=== PATIENT | male | born 1985 | race Caucasian/White ===

== ENCOUNTER 2017-04-04 11:58 | Emergency (ER) | payer OTHER ==
[2017-04-04] MEDS ORDERED: ASPIRIN 81 MG TABLET, CHEWABLE PO ONE (12:30)
--- NOTE | 2017-04-04 12:31 | ER Document Report ---
ED Medical Screen (RME) - General Chief Complaint: Chest Pain > 30 Stated Complaint: CHEST PAIN Time Seen by Provider: 04/04/17 12:25 Notes: 32-year-old male here with complaints of left-sided chest pain radiating up to the shoulder and arm with left arm numbness that started approximately 1.5 hours ago while he was sitting down watching TV. He does not know of anything that made the pain better or worse. He still has some pain at this time but it is better than it was initially. No diaphoresis or shortness of breath. He does not have any diagnosed hypertension diabetes hyperlipidemia. No prior history of similar. EXAM Left upper extremity strength 5/5 with intact sensation TRAVEL OUTSIDE OF THE [place] IN LAST 30 DAYS: No - Related Data Allergies/Adverse Reactions: No Known Allergies Allergy (Verified 04/04/17 12:03) Physical Exam - Vital signs Vitals: Temp Pulse Resp BP Pulse Ox 98.5 F 87 16 127/85 H 98 04/04/17 12:18 04/04/17 12:18 04/04/17 12:18 04/04/17 12:18 04/04/17 12:18 Course - Vital Signs Vital signs: Temp Pulse Resp BP Pulse Ox 98.5 F 87 16 127/85 H 98 04/04/17 12:18 04/04/17 12:18 04/04/17 12:18 04/04/17 12:18 04/04/17 12:18
[2017-04-04 13:25] LABS: ABSOLUTE EOSINOPHILS # (AUTO) 0.6 10^3/uL (0.0-0.6); ABSOLUTE LYMPHOCYTES (AUTO) 1.8 10^3/uL (0.5-4.7); ABSOLUTE MONOCYTES (AUTO) 0.9 10^3/uL (0.1-1.4); ABSOLUTE NEUT (AUTO) 9.7 10^3/uL (1.7-8.2); BASOPHILS % (AUTO) 0.2 % (0-2); EOSINOPHILS % (AUTO) 4.8 % (0-6); HEMOGLOBIN 16.2 g/dL (13.5-17.0); LYMPHOCYTES % (AUTO) 13.6 % (13-45); MEAN CORPUSCULAR HEMOGLOBIN 33.2 pg (27.0-33.4); MEAN CORPUSCULAR HGB CONC 33.8 g/dL (32.0-36.0); MEAN CORPUSCULAR VOLUME 98 fl (80-97); MONOCYTES % (AUTO) 6.8 % (3-13); PLATELET COUNT 266 10^3/uL (150-450); RED BLOOD COUNT 4.89 10^6/uL (4.35-5.55); RED CELL DISTRIBUTION WIDTH 12.5 % (11.5-14.0); SEGMENTED NEUTROPHILS % (AUTO) 74.6 % (42-78); TOTAL CELLS COUNTED % (AUTO) 100 %
--- NOTE | 2017-04-04 13:34 | RADIOLOGY REPORT (SQ) ---
EXAM DESCRIPTION: CHEST PA/LAT COMPLETED DATE/TIME: 04/04/2017 1:23 pm REASON FOR STUDY: CP L sided COMPARISON: None. EXAM PARAMETERS: NUMBER OF VIEWS: two views TECHNIQUE: Digital Frontal and Lateral radiographic views of the chest acquired. RADIATION DOSE: NA LIMITATIONS: none FINDINGS: LUNGS AND PLEURA: No opacities, masses or pneumothorax. No pleural effusion. MEDIASTINUM AND HILAR STRUCTURES: No masses or contour abnormalities. HEART AND VASCULAR STRUCTURES: Heart normal size. No evidence for failure. BONES: No acute findings. HARDWARE: None in the chest. OTHER: No other significant finding. IMPRESSION: NO SIGNIFICANT RADIOGRAPHIC FINDING IN THE CHEST. TECHNICAL DOCUMENTATION: JOB ID: [id number] [employer]- All Rights Reserved
[2017-04-04 13:46] LABS: ANION GAP 11 (5-19); BLOOD UREA NITROGEN 14 mg/dL (7-20); CALCIUM 10.1 mg/dL (8.4-10.2); CARBON DIOXIDE 31 mmol/L (22-30); CHLORIDE 98 mmol/L (98-107); GLUCOSE 95 mg/dL (75-110); POTASSIUM 4.4 mmol/L (3.6-5.0); SODIUM 139.6 mmol/L (137-145)
--- NOTE | 2017-04-04 14:27 | ER Document Report ---
ED Cardiac - General Mode of Arrival: Ambulatory Information source: Patient TRAVEL OUTSIDE OF THE [place] IN LAST 30 DAYS: No - HPI Patient complains to provider of: Chest pain Use of: Other - energy drinks 1-2 a day Chest pain precipitating factors: At Rest Cardiac risk factors: Smoker Associated symptoms: Other - see notes above <AGUSTINA CÁRDENAS - Last Filed: 04/04/17 15:15> <KASSANDRA RUTLEDGE - Last Filed: 04/04/17 19:03> - General Chief Complaint: Chest Pain > 30 Stated Complaint: CHEST PAIN Time Seen by Provider: 04/04/17 12:25 Notes: 32 year old male with history of smoking, but no other significant cardiac history, presents to the ED complaining of chest pain that started at 11:15 this morning. Patient states that he was at rest playing a video game when he began feeling left sided numbness and lightheadedness. Patient went to lay down and began experiencing a racing heart. Patient controlled his heart rate with breathing, but then started having chest pain. Patient reports that he has never had symptoms like this in the past. Patient drinks 1-2 energy drinks in the past and has a past history of smoking marijuana. (AGUSTINA CÁRDENAS) - Related Data Allergies/Adverse Reactions: No Known Allergies Allergy (Verified 04/04/17 12:03) Past Medical History - General Information source: Patient - Social History Smoking Status: Current Every Day Smoker Chew tobacco use (# tins/day): No Frequency of alcohol use: Heavy Drug Abuse: Marijuana - during high school Family History: Reviewed & Not Pertinent Patient has suicidal ideation: No Patient has homicidal ideation: No - Medical History Medical History: Negative Renal/ Medical History: Denies: Hx Peritoneal Dialysis Surgical Hx: Negative <AGUSTINA CÁRDENAS - Last Filed: 04/04/17 15:15> - Social History Smoking Education Provided: Yes - 4 mins <KASSANDRA RUTLEDGE - Last Filed: 04/04/17 19:03> Review of Systems - Review of Systems Constitutional: No symptoms reported EENT: No symptoms reported Cardiovascular: See HPI, Chest pain, Heart racing, Lightheaded Respiratory: No symptoms reported Gastrointestinal: No symptoms reported Genitourinary: No symptoms reported Male Genitourinary: No symptoms reported Musculoskeletal: No symptoms reported Skin: No symptoms reported Hematologic/Lymphatic: No symptoms reported Neurological/Psychological: See HPI, Numbness - left sided -: Yes All other systems reviewed and negative <AGUSTINA CÁRDENAS - Last Filed: 04/04/17 15:15> Physical Exam <AGUSTINA CÁRDENAS - Last Filed: 04/04/17 15:15> <KASSANDRA RUTLEDGE - Last Filed: 04/04/17 19:03> - Vital signs Vitals: Temp Pulse Resp BP Pulse Ox 98.5 F 87 16 127/85 H 98 04/04/17 12:18 04/04/17 12:18 04/04/17 12:18 04/04/17 12:18 04/04/17 12:18 - Notes Notes: GENERAL: Alert, interacts well. No acute distress. HEAD: Normocephalic, atraumatic. EYES: Pupils equal, round, and reactive to light. Extraocular movements intact. ENT: Oral mucosa moist, tongue midline. NECK: Full range of motion. Supple. Trachea midline. LUNGS: Clear to auscultation bilaterally, no wheezes, rales, or rhonchi. No respiratory distress. HEART: Regular rate and rhythm. No murmurs, gallops, or rubs. ABDOMEN: Soft, non-tender. Non-distended. Bowel sounds present in all 4 quadrants. EXTREMITIES: Moves all 4 extremities spontaneously. No edema, radial and dorsalis pedis pulses 2/4 bilaterally. No cyanosis. NEUROLOGICAL: Alert and oriented x3. Normal speech. Patellar DTRs 2+ bilaterally. PSYCH: Normal affect, normal mood. SKIN: Warm, dry, normal turgor. No rashes or lesions noted. (AGUSTINA CÁRDENAS) Course - Laboratory Result Diagrams: 04/04/17 13:14 04/04/17 13:14 <AGUSTINA CÁRDENAS - Last Filed: 04/04/17 15:15> - Laboratory Result Diagrams: 04/04/17 13:14 04/04/17 13:14 <KASSANDRA RUTLEDGE - Last Filed: 04/04/17 19:03> - Re-evaluation Re-evalutation: 04/04/17 16:38 CBC shows slight leukocytosis of 13.0, no anemia, d-dimer negative, troponin negative 2, BMP unremarkable, chest x-ray unremarkable. EKG is nonischemic, he has not had any further tachycardia while here. Patient is low risk for acute coronary syndrome. Suspect patient had isolated episode of tachycardia induced by energy drinks however I am not certain of this. Low suspicion for pulmonary embolism or acute coronary syndrome. Patient is recommended to follow-up as an outpatient with cardiology for Holter monitor should he have any further episodes of tachycardia. Discharged home. ( KASSANDRA RUTLEDGE) - Vital Signs Vital signs: Temp Pulse Resp BP Pulse Ox 98.5 F 87 12 120/82 97 04/04/17 12:18 04/04/17 12:18 04/04/17 16:49 04/04/17 16:49 04/04/17 16:49 - Laboratory Laboratory results interpreted by me: 04/04/17 04/04/17 13:14 13:14 WBC 13.0 H MCV 98 H Absolute Neutrophils 9.7 H Carbon Dioxide 31 H - EKG Interpretation by Me Additional EKG results interpreted by me: 04/04/17 16:38 EKG shows sinus rhythm at a rate of 91, normal axis, normal intervals, no ST segment elevations or depressions, there are isolated T-wave inversions in lead III which are nonspecific. EKG #2 performed approximately 2 hours later shows sinus arrhythmia at a rate of 82, normal axis, normal intervals, no ST segment elevations or depressions, there continues to be isolated T-wave inversions in lead III as well as slight T -wave inversions in aVF again this is very nonspecific per my interpretation. ( KASSANDRA RUTLEDGE) Discharge <AGUSTINA CÁRDENAS - Last Filed: 04/04/17 15:15> <KASSANDRA RUTLEDGE - Last Filed: 04/04/17 19:03> - Discharge Clinical Impression: Palpitations, Left sided chest pain, Tobacco abuse, Tobacco abuse counseling Condition: Stable Disposition: HOME, SELF-CARE Additional Instructions: Palpitations (Irregular/Rapid Heartrate) Irregular or rapid heartbeat is called "palpitation." To diagnose the cause of palpitation, we have to "catch it in the act" with an EKG. Sinus Tachycardia: This is a rapid (but NORMAL) rhythm that can be due to fever, pain, anxiety, lack of sleep, over-exertion, or drugs. Cold medications, caffeine, and diet pills are particularly likely to cause tachycardia. Usually , all that's required is rest, reassurance, and avoiding caffeine, alcohol, nicotine, and unnecessary medicines. Paroxysmal Atrial Tachycardia (PAT): This abnormally rapid heartbeat is caused by a "short circuit" in the electrical system of the heart. It is not dangerous, unless other heart disease is present. These attacks of PAT may occur occasionally for years. Medication is available for treatment. Paroxysmal Atrial Fibrillation or Atrial Flutter: This is irregular electrical activity in the upper heart chamber. These abnormal rhythms often occur with valve disease or in hearts damaged by hardening of the arteries. These rhythms usually require further testing, for example a cardiac echo. Premature Beats: Extra beats occur more commonly after caffeine, nicotine , alcohol, cold pills, diet pills. Emotional stress or fatigue also provoke them. Extra beats are only dangerous when heart disease is present. They usually need no treatment. If they're frequent, or if evidence of heart disease develops, medication can be given to suppress them. If we were unable to "catch" the palpitations on EKG, you should try to get an EKG immediately if the symptoms begin again. Contact the physician at once if you develop persistent lightheadedness, shortness of breath, chest pain , or swelling of the ankles. Forms: Smoking Cessation Education Referrals: YNES DOLL MD [ACTIVE STAFF] - Follow up as needed ERIC YOUNGBLOOD MD [ACTIVE STAFF] - Follow up in 3-5 days Scribe Attestation: 04/04/17 19:03 I personally performed the services described in the documentation, reviewed and edited the documentation which was dictated to the scribe in my presence, and it accurately records my words and actions. (KASSANDRA RUTLEDGE) Scribe Documentation - Scribe Written by Siva:: Siva Solano, 04/04/2017 1527 acting as scribe for :: Trevon <AGUSTINA CÁRDENAS - Last Filed: 04/04/17 15:15>
[2017-04-04 16:59] VITALS: BP 120/82
--- NOTE | 2017-04-05 07:57 | EKG REPORT ---
SEVERITY:- NORMAL ECG - SINUS RHYTHM : Confirmed by: Faviola Guzman MD 05-Apr-2017 07:55:28
--- NOTE | 2017-04-05 07:57 | EKG REPORT ---
SEVERITY:- BORDERLINE ECG - SINUS ARRHYTHMIA, RATE 59-94 PROBABLE LEFT ATRIAL ABNORMALITY : Confirmed by: Faviola Guzman MD 05-Apr-2017 07:55:22
== END 2017-04-04 16:53 | disposition home or self-care (01) ==
LOC: ER 11:58
DX: R07.9 Chest pain, unspecified (principal); R00.2 Palpitations; R20.0 Anesthesia of skin; R42 Dizziness and giddiness; D72.829 Elevated white blood cell count, unspecified; F17.200 Nicotine dependence, unspecified, uncomplicated; Z71.6 Tobacco abuse counseling
CPT/HCPCS: 36415; 71020; 80048; 84484; 85025; 85379; 93005; 93010; 99285